=== PATIENT | female | born 1940 | race Caucasian/White ===

== ENCOUNTER 2018-10-25 19:59 | Inpatient (IN) ==
[2018-10-25] MEDS ORDERED: ACETAMINOPHEN 650 MG SUPP.RECT PR ONE (20:21)
[2018-10-25] MEDS ORDERED: 0.9 % SODIUM CHLORIDE 1,000 ML IV ONE ×2 (20:21→21:02)
--- NOTE | 2018-10-25 21:21 | Emergency Department Note ---
Altered Mental Status HPI - General Chief Complaint: Altered Mental Status Stated Complaint: confusion Time Seen by Provider: 10/25/18 20:39 Source: EMS Mode of arrival: EMS Limitations: altered mental status - History of Present Illness HPI Narrative: 78-year-old female in ED with altered mental status and increased weakness. Patient is a volunteer at [employer]. EMS was called by neighbors. Neighbors advised patient was over for dinner one night ago and told them that she had a fall where she hit her head. Today they Advise she has been confused with altered mental status. Patient normally lives home alone. Patient is disoriented upon arrival and unable to give us a history. Patient's medications are Zoloft, escitalopram, magnesium oxide, and amoxicillin prior to dental work. MD complaint: altered mental status, confusion, weakness Onset (ago): day(s) (2) Severity: moderate Context: recent fever Associated symptoms: Reports: cough, fever, loss of appetite, malaise - Related Data Home Medications Medication Instructions Recorded Confirmed Acetaminophen [Tylenol Extra 500 mg PRN 10/26/18 Strength] Amoxicillin 500 mg PO PRN PRN 10/26/18 10/27/18 Escitalopram Oxalate [Lexapro] 5 mg PO 10/26/18 Magnesium Oxide 400 10/26/18 Sertraline [Zoloft] 25 mg PO BID 10/26/18 10/27/18 Previous Rx's Medication Instructions Recorded Oseltamivir Phosphate [Tamiflu] 75 mg PO BID #6 cap 10/26/18 Allergies Allergy/AdvReac Type Severity Reaction Status Date / Time No Known Drug Allergies Allergy Verified 07/06/18 15:03 Review of Systems All systems ED: reviewed and negative except as stated. Past Medical History - Past Medical History PMF Narrative: All Active Problems (Last Reviewed 07/06/18 @ 15:46 by Louie Terrell PA-C) Contusion of right great toe without damage to nail, initial encounter (Acute) Pain of right great toe (Acute) URI (upper respiratory infection) (Acute) Perceived hearing changes (Acute) Impacted cerumen of right ear (Acute) OCD (obsessive compulsive disorder) (Chronic) Depression (Chronic) Tachycardia (Chronic) Precordial pain (Chronic) Rib contusion (Acute) Right leg pain (Acute) Lymphedema (Acute) Hx of knee surgery (Acute) Venous stasis dermatitis of right lower extremity (Acute) Anxiety (Acute) Laryngitis (Acute) Tinnitus (Acute) Bounding pulse (Acute) Anxiety (Acute) Noninfected skin tear of right lower extremity (Acute) Palpitations (Chronic) Dizziness (Chronic) Past Surgical History (Last Reviewed 07/06/18 @ 15:46 by Louie Terrell PA-C) Hx of knee surgery (Acute) History of tonsillectomy and adenoidectomy (Chronic) History of total right hip replacement (Chronic) Medical history: Reports: seizures. 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 Absent: conjunctival injection ENT: mucous membranes dry, TM's normal bilaterally, normal external ear exam Neck: Present: normal inspection. Absent: tenderness, meningismus, lymphadenopathy Chest: Present: normal inspection, symmetric chest wall rise. Absent: tenderness Respiratory: Present: normal lung sounds bilaterally. Absent: respiratory distress, rales/crackles, wheezes Cardiovascular: Present: tachycardia Abdominal: Present: soft, normal bowel sounds. Absent: distention, tenderness, guarding, rebound, rigidity Hip/Pelvis: Present: tenderness (left), deformity (internally rotated, does not lift at the knee like she does with the right one), internal rotation (left) Ankle: Present: tenderness (left), swelling (left), ecchymosis (left), erythema (left) Foot/toe: Present: ecchymosis (third phalanx right foot) Gait: not tested/not observed Back: Present: normal inspection. Absent: tenderness Neurological: Absent: oriented X3 Psychiatric: Present: agitated, anxious Skin: Present: warm, dry, intact, normal color. Absent: cool, diaphoretic Course Vital Signs Temperature 102.6 F H 10/25/18 20:00 Pulse Rate 103 H 10/25/18 20:00 Respiratory Rate 12 10/25/18 20:00 Blood Pressure 139/75 10/25/18 20:00 Pulse Oximetry (%) 98 10/25/18 20:00 Temperature 98.0 F 10/28/18 19:47 Pulse Rate 99 H 10/28/18 19:47 Respiratory Rate 24 H 10/28/18 19:47 Blood Pressure 129/77 10/28/18 19:47 Pulse Oximetry (%) 93 10/28/18 19:47 Altered Mental Status - MDM Narrative Medical decision making narrative: Patient tested influenza A positive. The patient was in radiology attempting to get a CT she became agitated, aggressive and still confused. She was provided 1mg of Ativan. Provided patient report to continue care as the end of this providers shift. - Lab Data Result diagrams: 10/28/18 09:27 10/28/18 09:27 Lab Results 10/25/18 10/25/18 10/25/18 Range/Units 20:50 21:15 21:15 WBC 4.2 L (4.5-11.0) K/mcL RBC 3.67 L (4.00-5.20) M/mcL Hgb 11.4 L (12.0-15.0) g/dL Hct 34.2 L (36.0-48.0) % POC Hct 38.0 (36.0-48.0) % MCV 93.2 (80.0-100.0) fL MCH 30.9 (26.0-34.0) pg MCHC 33.2 (31.0-36.0) g/dL RDW 13.1 (11.5-14.5) % Plt Count 180 (140-440) K/mcL MPV 7.2 L (7.4-10.4) fL Total Counted 100 Seg Neutrophils % 81 H (38-78) % Band Neutrophils % 6 (0-10) % Lymphocytes % 8 L (15-49) % Monocytes % (Manual) 5 (1-12) % Platelet Estimate Normal (NORMAL) RBC Morphology Normal (NORMAL) VBG Lactic Acid (0.5-2.0) mmol/L POC Sodium 139 (133-145) mmol/L Sodium (133-145) mmol/L POC Potassium 3.9 (3.3-5.1) mmol/L Potassium (3.3-5.1) mmol/L POC Chloride 102 (96-108) mmol/L Chloride (96-108) mmol/L Carbon Dioxide (22-30) mmol/L POC Total CO2 24 (22-30) mmol/L Anion Gap (8-16) POC BUN 14 (8-23) mg/dl BUN (8-23) mg/dl Creatinine (0.6-1.1) mg/dl POC Creatinine 0.9 (0.6-1.1) mg/dl GFR Calculation Glucose (70-105) mg/dL POC Glucose 88 (70-105) mg/dL Calcium (8.6-10.4) mg/dl POC WB Ioniz Calcium 1.06 L (1.16-1.32) mmol/L Total Bilirubin (0.0-1.0) mg/dL AST (0-37) U/l ALT (0-40) U/l Alkaline Phosphatase (39-117) U/L Total Protein (5.9-8.4) gm/dL Albumin (3.2-5.2) gm/dL Globulin (2.2-3.7) gm/dL Albumin/Globulin Ratio (1.0-2.3) Procalcitonin (<0.10) ng/mL Urine Color Yellow Urine Appearance Clear Urine pH 6.0 (5.0-9.0) Ur Specific Agency 1.021 (1.000-1.035) Urine Protein Neg (NEG) mg/dL Urine Glucose (UA) Negative (NEG) mg/dL Urine Ketones 20 A (NEG) mg/dL Urine Occult Blood 0.03 A (<0.03) mg/dL Urine Nitrate Neg (NEG) Urine Bilirubin Neg (NEG) mg/dL Urine Urobilinogen Neg (NEG) mg/dL Ur Leukocyte Esterase Neg (NEG) /uL Urine RBC 15 H (0-1) /hpf Urine WBC 1 (0-4) /hpf Ur Squamous Epith Cells 0 (0-4) /hpf Urine Bacteria 0 (0) /hpf Urine Mucus Few (0) /hpf Ur Culture Indicated? No 10/25/18 10/25/18 10/25/18 Range/Units 21:15 21:15 21:15 WBC (4.5-11.0) K/mcL RBC (4.00-5.20) M/mcL Hgb (12.0-15.0) g/dL Hct (36.0-48.0) % POC Hct (36.0-48.0) % MCV (80.0-100.0) fL MCH (26.0-34.0) pg MCHC (31.0-36.0) g/dL RDW (11.5-14.5) % Plt Count (140-440) K/mcL MPV (7.4-10.4) fL Total Counted Seg Neutrophils % (38-78) % Band Neutrophils % (0-10) % Lymphocytes % (15-49) % Monocytes % (Manual) (1-12) % Platelet Estimate (NORMAL) RBC Morphology (NORMAL) VBG Lactic Acid 1.9 (0.5-2.0) mmol/L POC Sodium (133-145) mmol/L Sodium 136 (133-145) mmol/L POC Potassium (3.3-5.1) mmol/L Potassium 4.1 (3.3-5.1) mmol/L POC Chloride (96-108) mmol/L Chloride 101 (96-108) mmol/L Carbon Dioxide 23 (22-30) mmol/L POC Total CO2 (22-30) mmol/L Anion Gap 12.0 (8-16) POC BUN (8-23) mg/dl BUN 14 (8-23) mg/dl Creatinine 0.9 (0.6-1.1) mg/dl POC Creatinine (0.6-1.1) mg/dl GFR Calculation 60 Glucose 90 (70-105) mg/dL POC Glucose (70-105) mg/dL Calcium 8.5 L (8.6-10.4) mg/dl POC WB Ioniz Calcium (1.16-1.32) mmol/L Total Bilirubin 0.3 (0.0-1.0) mg/dL AST 43 H (0-37) U/l ALT 22 (0-40) U/l Alkaline Phosphatase 47 (39-117) U/L Total Protein 7.0 (5.9-8.4) gm/dL Albumin 3.7 (3.2-5.2) gm/dL Globulin 3.3 (2.2-3.7) gm/dL Albumin/Globulin Ratio 1.1 (1.0-2.3) Procalcitonin < 0.05 (<0.10) ng/mL Urine Color Urine Appearance Urine pH (5.0-9.0) Ur Specific Agency (1.000-1.035) Urine Protein (NEG) mg/dL Urine Glucose (UA) (NEG) mg/dL Urine Ketones (NEG) mg/dL Urine Occult Blood (<0.03) mg/dL Urine Nitrate (NEG) Urine Bilirubin (NEG) mg/dL Urine Urobilinogen (NEG) mg/dL Ur Leukocyte Esterase (NEG) /uL Urine RBC (0-1) /hpf Urine WBC (0-4) /hpf Ur Squamous Epith Cells (0-4) /hpf Urine Bacteria (0) /hpf Urine Mucus (0) /hpf Ur Culture Indicated? Disposition Pt seen by PLUMBING DRAFTER/PA only: No (Health Insurance Sales Agent) Clinical Impression: Influenza A Disposition: Xfer As Inpt ([facility]) Condition: Fair Time of Disposition: 21:53
[2018-10-25] MEDS ORDERED: LORazepam 2 MG/ML VIAL IV ONE (21:28)
[2018-10-25] MEDS ORDERED: HYDROmorphone 2 MG/ML VIAL IV PRN (21:42)
[2018-10-25 21:54] LABS: Mean Cell Volume 93.2 fL (80.0-100.0); Mean Corpuscular HGB Conc 33.2 g/dL (31.0-36.0); Platelet Count 180 K/mcL (140-440); RBC 3.67 M/mcL (4.00-5.20); Red Cell Distribution Width 13.1 % (11.5-14.5)
[2018-10-25 22:03] LABS: ALT/SGPT 22 U/l (0-40); Albumin 3.7 gm/dL (3.2-5.2); Albumin/Globulin Ratio 1.1 (1.0-2.3); Alkaline Phosphatase 47 U/L (39-117); Blood Urea Nitrogen 14 mg/dl (8-23)
[2018-10-25 22:06] LABS: Appearance,Urine CLEAR; Bacteria,Urine 0 /hpf (0); Bilirubin,Urine NEG (NEG); Color,Urine YELLOW; Glucose,Urine (UA) NEGATIVE (NEG); Leukocyte Esterase,Urine NEG /uL (NEG); Mucus,Urine FEW /hpf (0); Protein,Urine NEG (NEG); Specific Gravity,Urine 1.021 (1.000-1.035); Urine Blood 0.03 mg/dL (<0.03); Urine RBC 15 /hpf (0-1); Urine Squamous Epithelial Cell 0 /hpf (0-4); Urine WBC 1 /hpf (0-4); Urobilinogen,Urine NEG (NEG)
[2018-10-25] MEDS ORDERED: LACTATED RINGERS 1,000 ML IV ONE (22:31)
[2018-10-25 23:02] LABS: Band Neutrophils % 6 % (0-10); Lymphocytes % 8 % (15-49); Monocytes % (Manual) 5 % (1-12); Platelet Estimate NORMAL (NORMAL); RBC Morphology NORMAL (NORMAL); Segmented Neutrophils % 81 % (38-78)
--- NOTE | 2018-10-25 23:02 | Emergency Department Note ---
Altered Mental Status HPI - General Chief Complaint: Altered Mental Status Stated Complaint: confusion Time Seen by Provider: 10/25/18 20:39 Source: EMS Mode of arrival: EMS Limitations: altered mental status - History of Present Illness Severity: moderate Associated symptoms: Reports: cough, fever, loss of appetite, malaise - Related Data Home Medications Medication Instructions Recorded Confirmed No Known Home Meds 04/02/18 10/25/18 Allergies Allergy/AdvReac Type Severity Reaction Status Date / Time No Known Drug Allergies Allergy Verified 07/06/18 15:03 Past Medical History - Past Medical History Medical history: Reports: seizures. 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 Smalls. - Lab Data Lab results reviewed: Yes I reviewed the patient's lab results. Result diagrams: 10/25/18 21:15 10/25/18 21:15 Lab Results 10/25/18 10/25/18 10/25/18 Range/Units 20:50 21:15 21:15 WBC 4.2 L (4.5-11.0) K/mcL RBC 3.67 L (4.00-5.20) M/mcL Hgb 11.4 L (12.0-15.0) g/dL Hct 34.2 L (36.0-48.0) % POC Hct 38.0 (36.0-48.0) % MCV 93.2 (80.0-100.0) fL MCH 30.9 (26.0-34.0) pg MCHC 33.2 (31.0-36.0) g/dL RDW 13.1 (11.5-14.5) % Plt Count 180 (140-440) K/mcL MPV 7.2 L (7.4-10.4) fL Band Neutrophils % Not Reportable VBG Lactic Acid (0.5-2.0) mmol/L POC Sodium 139 (133-145) mmol/L Sodium (133-145) mmol/L POC Potassium 3.9 (3.3-5.1) mmol/L Potassium (3.3-5.1) mmol/L POC Chloride 102 (96-108) mmol/L Chloride (96-108) mmol/L Carbon Dioxide (22-30) mmol/L POC Total CO2 24 (22-30) mmol/L Anion Gap (8-16) POC BUN 14 (8-23) mg/dl BUN (8-23) mg/dl Creatinine (0.6-1.1) mg/dl POC Creatinine 0.9 (0.6-1.1) mg/dl GFR Calculation Glucose (70-105) mg/dL POC Glucose 88 (70-105) mg/dL Calcium (8.6-10.4) mg/dl POC WB Ioniz Calcium 1.06 L (1.16-1.32) mmol/L Total Bilirubin (0.0-1.0) mg/dL AST (0-37) U/l ALT (0-40) U/l Alkaline Phosphatase (39-117) U/L Total Protein (5.9-8.4) gm/dL Albumin (3.2-5.2) gm/dL Globulin (2.2-3.7) gm/dL Albumin/Globulin Ratio (1.0-2.3) Urine Color Yellow Urine Appearance Clear Urine pH 6.0 (5.0-9.0) Ur Specific [place] 1.021 (1.000-1.035) Urine Protein Neg (NEG) mg/dL Urine Glucose (UA) Negative (NEG) mg/dL Urine Ketones 20 A (NEG) mg/dL Urine Occult Blood 0.03 A (<0.03) mg/dL Urine Nitrate Neg (NEG) Urine Bilirubin Neg (NEG) mg/dL Urine Urobilinogen Neg (NEG) mg/dL Ur Leukocyte Esterase Neg (NEG) /uL Urine RBC 15 H (0-1) /hpf Urine WBC 1 (0-4) /hpf Ur Squamous Epith Cells 0 (0-4) /hpf Urine Bacteria 0 (0) /hpf Urine Mucus Few (0) /hpf Ur Culture Indicated? No 10/25/18 10/25/18 Range/Units 21:15 21:15 WBC (4.5-11.0) K/mcL RBC (4.00-5.20) M/mcL Hgb (12.0-15.0) g/dL Hct (36.0-48.0) % POC Hct (36.0-48.0) % MCV (80.0-100.0) fL MCH (26.0-34.0) pg MCHC (31.0-36.0) g/dL RDW (11.5-14.5) % Plt Count (140-440) K/mcL MPV (7.4-10.4) fL Band Neutrophils % VBG Lactic Acid 1.9 (0.5-2.0) mmol/L POC Sodium (133-145) mmol/L Sodium 136 (133-145) mmol/L POC Potassium (3.3-5.1) mmol/L Potassium 4.1 (3.3-5.1) mmol/L POC Chloride (96-108) mmol/L Chloride 101 (96-108) mmol/L Carbon Dioxide 23 (22-30) mmol/L POC Total CO2 (22-30) mmol/L Anion Gap 12.0 (8-16) POC BUN (8-23) mg/dl BUN 14 (8-23) mg/dl Creatinine 0.9 (0.6-1.1) mg/dl POC Creatinine (0.6-1.1) mg/dl GFR Calculation 60 Glucose 90 (70-105) mg/dL POC Glucose (70-105) mg/dL Calcium 8.5 L (8.6-10.4) mg/dl POC WB Ioniz Calcium (1.16-1.32) mmol/L Total Bilirubin 0.3 (0.0-1.0) mg/dL AST 43 H (0-37) U/l ALT 22 (0-40) U/l Alkaline Phosphatase 47 (39-117) U/L Total Protein 7.0 (5.9-8.4) gm/dL Albumin 3.7 (3.2-5.2) gm/dL Globulin 3.3 (2.2-3.7) gm/dL Albumin/Globulin Ratio 1.1 (1.0-2.3) Urine Color Urine Appearance Urine pH (5.0-9.0) Ur Specific [place] (1.000-1.035) Urine Protein (NEG) mg/dL Urine Glucose (UA) (NEG) mg/dL Urine Ketones (NEG) mg/dL Urine Occult Blood (<0.03) mg/dL Urine Nitrate (NEG) Urine Bilirubin (NEG) mg/dL Urine Urobilinogen (NEG) mg/dL Ur Leukocyte Esterase (NEG) /uL Urine RBC (0-1) /hpf Urine WBC (0-4) /hpf Ur Squamous Epith Cells (0-4) /hpf Urine Bacteria (0) /hpf Urine Mucus (0) /hpf Ur Culture Indicated? - Radiology Data Radiology results reviewed: Yes I reviewed the patient's radiology results. Disposition Pt seen by EXECUTIVE CONSULTANT/PA only: No Clinical Impression: Influenza A Disposition: Xfer As Inpt ([facility]) Condition: Fair Referrals: Trevon Mcduffie MD [Primary Care Provider] - Time of Disposition: 23:02
--- NOTE | 2018-10-25 23:23 | Internal Med History&Physical ---
Medical - H&P: HPI Patient information: Note initiated : 10/25/18 at 11:21 pm Service Date, if different from initiated Date: [] Patient: Monik Byrd a 78 y/o F admitted on for confusion. Chief Complaint: [] History of present illness: Ms. Byrd is a 78 year old F With weakness and confusion for the past 24 hours as well as cough. EMS was called by neighbors as the neighbors had her over for dinner the previous night where she had fallen. Today they noticed that she was confused, she lives alone. She was disoriented when she arrived in the ED. She has a history of depression. She had a chest x-ray, knee x-ray, CT brain; all unremarkable per discussion with ED physician. She was found to be febrile and found to be positive for influenza A. In discussing with her why she is here she is not sure why. She could not give me much of a history. She is coughing throughout my interview, and I asked if that is new and she says it depends. Review of systems: Unable to obtain given her confusion Medical - H&P: [facility] Medical history: Medical History (Last Reviewed 07/06/18 @ 15:46 by Louie Terrell PA-C) OCD (obsessive compulsive disorder) (Chronic) Depression (Chronic) Tachycardia (Chronic) Precordial pain (Chronic) Rib contusion (Acute) Right leg pain (Acute) Lymphedema (Acute) Venous stasis dermatitis of right lower extremity (Acute) Anxiety (Acute) Laryngitis (Acute) Tinnitus (Acute) Bounding pulse (Acute) Anxiety (Acute) Noninfected skin tear of right lower extremity (Acute) Palpitations (Chronic) Dizziness (Chronic) Depression Past Surgical History (Last Reviewed 07/06/18 @ 15:46 by Louie Terrell PA-C) Hx of knee surgery (Acute) History of tonsillectomy and adenoidectomy (Chronic) History of total right hip replacement (Chronic) Family history: She could not give me her parents medical history Social History (Last Updated 07/06/18 @ 15:48 by Louie Terrell PA-C) -She lives alone -She does not smoke -Drinks alcohol rarely Is a volunteer at [employer] - H&P: Meds Home Medications Medication Instructions Recorded Confirmed Type No Known Home Meds 04/02/18 10/25/18 History Allergies Allergy/AdvReac Type Severity Reaction Status Date / Time No Known Drug Allergies Allergy Verified 07/06/18 15:03 Medical - H&P: Exam - Constitutional Vitals: Temp Pulse Resp BP Pulse Ox 101.4 F H 99 H 17 131/74 98 10/25/18 23:16 10/25/18 23:16 10/25/18 23:16 10/25/18 23:16 10/25/18 23:16 Exam: General: Alert, Awake, No acute Distress Eyes/N/T: EOMI, PEERL, DMM, sclera injected bilaterally Head/Neck: neck supple with full ROM no rigidity, normocephalic atraumatic CV: Mildly tacky but regular, No murmurs, Pulm: Clear b/l, no wheezing/rhonchi/rales Abd: soft, nontender, +BS x4 Ext: no clubbing/cyanosis/edema Neuro: Alert and oriented to person and to hospital but could not tell me which hospital and could not tell me the president to the [facility] or the year, moves all extremities, follows commands, CN 2-12 grossly intact, symmetrical strength b/l upper/lower, sensations intact b/l upper/lower. No nuchal rigidity. Skin: warm/dry Medical - H&P: Reslt - Labs CBC & Chem 7: 10/25/18 21:15 10/25/18 21:15 Labs: Short CBC 10/25/18 Range/Units 21:15 WBC 4.2 L (4.5-11.0) K/mcL Hgb 11.4 L (12.0-15.0) g/dL Hct 34.2 L (36.0-48.0) % Plt Count 180 (140-440) K/mcL BMP 10/25/18 21:15 Sodium 136 Potassium 4.1 Chloride 101 Carbon Dioxide 23 BUN 14 Creatinine 0.9 Glucose 90 Calcium 8.5 L Liver Function 10/25/18 Range/Units 21:15 Total Bilirubin 0.3 (0.0-1.0) mg/dL AST 43 H (0-37) U/l ALT 22 (0-40) U/l Alkaline Phosphatase 47 (39-117) U/L Albumin 3.7 (3.2-5.2) gm/dL Urine 03/24/19 Range/Units 20:50 Urine Color Yellow Urine Appearance Clear Urine pH 6.0 (5.0-9.0) Ur Specific [place] 1.021 (1.000-1.035) Urine Protein Neg (NEG) mg/dL Urine Glucose (UA) Negative (NEG) mg/dL - Impressions Chest x-ray possible haziness right middle lobe CT brain unremarkable per report Medical - H&P: A/P - Narrative A/P Narrative: A: *Influenza A with Fever/Cough/Confusion: *Encephalopathy: Secondary to above *Depression/anxiety: *Generalized weakness/deconditioning: * P: -Tamiflu -IVF's -PRN Zyprexa -Follow-up procalcitonin and cultures -Check ABG - -clarify home meds -pt/ot -ppx: Lovenox
[2018-10-25] MEDS ORDERED: OSELTAMIVIR PHOSPHATE 75 MG CAPSULE PO ONE (23:49)
[2018-10-25] MEDS ORDERED: hydrOXYzine 25 MG TABLET PO ONE (23:52)
[2018-10-26] MEDS ORDERED: POLYETHYLENE GLYCOL 3350 17 GM PACKET PO PRN (00:36)
[2018-10-26] MEDS ORDERED: PROCHLORPERAZINE 10 MG/2 ML VIAL IV PRN (00:36)
[2018-10-26] MEDS ORDERED: hydrOXYzine 25 MG TABLET PO ONE (00:36)
[2018-10-26] MEDS ORDERED: OSELTAMIVIR PHOSPHATE 75 MG CAPSULE PO ONE (00:36)
[2018-10-26] MEDS ORDERED: OLANZapine 5 MG TABLET PO PRN (00:36)
[2018-10-26] MEDS ORDERED: POTASSIUM CHLORIDE 40 MEQ in DEXTROSE 5% IN WATER 500 ML IV PRN (00:36)
[2018-10-26] MEDS ORDERED: MAGNESIUM SULFATE 2 GM/50 ML BAG IV PRN (00:36)
[2018-10-26] MEDS ORDERED: SENNOSIDES 1 TABLET PO PRN (00:36)
[2018-10-26] MEDS ORDERED: POTASSIUM CHLORIDE 20 MEQ TABLET PO PRN ×2 (00:36)
[2018-10-26] MEDS ORDERED: LACTULOSE 20 GM/30 ML ORAL.SOL PO PRN (00:36)
[2018-10-26] MEDS ORDERED: ONDANSETRON 4 MG/2 ML VIAL IV PRN (00:36)
[2018-10-26] MEDS ORDERED: IPRATROPIUM/ALBUTEROL 3 ML AMPUL.NEB NEB PRN (00:36)
[2018-10-26] MEDS: HYDROcodone/APAP 5/325MG TABLET PO PRN (01:15)
[2018-10-26] MEDS ORDERED: HYDROcodone/APAP 5/325MG TABLET PO ONE (01:15)
[2018-10-26] MEDS: 0.9 % SODIUM CHLORIDE 10 ML SYRINGE IV SCH ×3 (05:32→23:50)
--- NOTE | 2018-10-26 06:02 | XRay Report ---
CLINICAL INFORMATION: Confusion. Fall. Apparent hip pain TECHNIQUE: AP pelvis, lateral left hip COMPARISON: None. FINDINGS: Suboptimal evaluation. The patient was unable to cooperate and hold still. Previous right total hip arthroplasty There is degenerative joint disease in the left hip. No detectable acute fracture. No pelvic or sacral fracture identified. As clinically indicated follow-up examination or CT scan may be of benefit IMPRESSION: 1. Suboptimal evaluation as above 2. Degenerative joint disease and left hip. No detectable acute fracture Interpreted and Authenticated by: Jozef Hermosillo 10/26/18
--- NOTE | 2018-10-26 06:06 | Cat Scan Report ---
CLINICAL INFORMATION: Confusion COMPARISON: Previous examination dated 05/21/2017 TECHNIQUE: Axial noncontrast-enhanced images through the brain. Axial noncontrast enhanced examination FINDINGS: Patient was unable to hold still during examination. No acute intracranial hemorrhage. There is no subdural hematoma. No subarachnoid hemorrhage. No acute intra-axial hemorrhage. There is white matter abnormality consistent with small vessel ischemic change in this 78-year-old patient. There is more focal low density in the occipital lobes, right worse on left. These findings appear chronic. No new attenuation abnormalities or localized mass effect. No midline shift. Brainstem and cerebellum are negative. Basilar cisterns are normal. No hyperdense middle cerebral artery sign. No calvarial fracture. No lytic lesion. There is inflammatory disease within the ethmoid sinuses bilaterally. Temporal bones are negative. No destructive lesion or fracture Examination was initially interpreted by [facility] IMPRESSION: 1. White matter abnormality as above 2. No acute abnormality. No significant interval change since 05/21/2017 The exam was performed using radiation dose optimization techniques including, but not limited to, automated exposure control, adjustment of the mA and/or kV according to patient size and use of iterative reconstruction technique. Interpreted and Authenticated by: Jozef Hermosillo 10/26/18
--- NOTE | 2018-10-26 06:07 | XRay Report ---
CLINICAL INFORMATION: Left ankle injury. Left ankle swelling TECHNIQUE: AP, oblique, lateral left ankle COMPARISON: None. FINDINGS: No left ankle fracture. Distal tibia and fibula are negative. Comparison calcaneus are normal. No osteochondral lesion of the talus. Tibiotalar joint and subtalar joint are negative. No plain film evidence for significant tibiotalar joint effusion IMPRESSION: Negative left ankle. No acute abnormality Interpreted and Authenticated by: Jozef Hermosillo 10/26/18
--- NOTE | 2018-10-26 06:08 | XRay Report ---
INDICATION: Influenza TECHNIQUE: AP chest x-ray,portable semiupright COMPARISON: Previous chest x-rays dated 04/17/2018, 01/15/2018 FINDINGS:Lungs are negative. No parenchymal infiltrate or mass. No focal pulmonary parenchymal abnormality. Heart size and vascularity are normal. Adriana and mediastinum are negative. No pleural fluid. No acute abnormality or interval change IMPRESSION: No acute abnormality. Negative AP chest x-ray Interpreted and Authenticated by: Jozef Hermosillo 10/26/18
[2018-10-26 06:18] LABS: Basophils # (Auto) 0 K/mcL (0.0-0.3); Basophils % (Auto) 0.2 % (0.0-2.0); Eosinophils # (Auto) 0 K/mcL (0.0-0.7); Eosinophils % (Auto) 0.1 % (0.0-7.0); Granulocytes % (Auto) 72.7 % (38.0-78.0); Lymphocytes # (Auto) 0.5 K/mcL (1.5-4.8); Lymphocytes % (Auto) 13.8 % (15.5-49.0); Mean Cell Volume 95.6 fL (80.0-100.0); Mean Corpuscular HGB Conc 33.1 g/dL (31.0-36.0); Monocytes # (Auto) 0.5 K/mcL (0.1-0.9); Monocytes % (Auto) 13.2 % (1.0-12.0); Platelet Count 135 K/mcL (140-440); RBC 3.48 M/mcL (4.00-5.20); Red Cell Distribution Width 14.3 % (11.5-14.5)
[2018-10-26 06:28] LABS: ALT/SGPT 20 U/l (0-40); Albumin 3.2 gm/dL (3.2-5.2); Albumin/Globulin Ratio 1.1 (1.0-2.3); Alkaline Phosphatase 40 U/L (39-117); Bilirubin,Direct < 0.2 mg/dL (0.0-0.3); Blood Urea Nitrogen 10 mg/dl (8-23); Gamma Glutamyl Transpeptidase 17 U/L (5-36); Uric Acid 2.6 mg/dL (2.5-8.0)
--- NOTE | 2018-10-26 07:25 | Internal Med Progress Note ---
Medical - PN: Subj Patient information: Note initiated : 10/26/18 at 7:18 am Service Date, if different from initiated Date: [] Patient: Monik Byrd a 78 y/o F admitted on 10/26/18 for confusion. Chief Complaint: [] Interval history: Ms. Byrd is a 78 year old F With weakness and confusion for the past 24 hours as well as cough. EMS was called by neighbors as the neighbors had her over for dinner the previous night where she had fallen. Today they noticed that she was confused, she lives alone. She was disoriented when she arrived in the ED. She has a history of depression. She had a chest x-ray, knee x-ray, CT brain; all unremarkable per discussion with ED physician. She was found to be febrile and found to be positive for influenza A. In discussing with her why she is here she is not sure why. She could not give me much of a history. She is coughing throughout my interview, and I asked if that is new and she says it depends. Review of systems: Unable to obtain given her confusion 10/26 She reports poor sleep last night. Reports some crampy abdominal pain lower quadrants. No she is in the hospital. Appears agitated at times. Answers questions appropriately although slowly. - Constitutional Vitals: Vital Signs Temp Pulse Resp BP Pulse Ox 100.0 F H 98 H 19 106/62 100 10/26/18 04:01 10/26/18 00:48 10/26/18 04:01 10/26/18 04:01 10/26/18 04:01 Period Temp Pulse Resp BP Sys/Khanna Pulse Ox Last 24 Hr 100.0 F-103.5 F 95-113 12- 106-152/50-103 92-100 Intake and Output 10/25/18 10/26/18 10/26/18 21:59 05:59 13:59 Intake Total 2150 Output Total 1350 Balance 800 Weight 76.204 kg 74.707 kg Intake & Output: Intake & Output 10/25/18 10/26/18 10/26/18 21:59 05:59 13:59 Intake Total 2150 Output Total 1350 Balance 800 Weight 76.204 kg 74.707 kg Intake: IV 2000 Sodium Chloride 0.9% 1,000 ml @ 2000 Wide Open IV BOLUS ONE Rx#: [id number] Oral 150 Output: Urine Catheter Amount 1350 Other: Urine Appearance Clear Uretheral (Esquivel) Cloudy Clear Urine Color Bright Yellow Uretheral (Esquivel) Dark Yellow Dark Yellow Exam: General: Alert, Awake, Eyes/N/T: EOMI, Head/Neck: neck supple with full ROM no rigidity, CV: Mildly tacky but regular, No murmurs, Pulm: Clear b/l, no wheezing/rhonchi/rales Abd: soft, nontender, +BS x4 Ext: no clubbing/cyanosis/edema Neuro: Alert and oriented to person and to hospital but could not tell me which hospital and could not tell me the president to the [place] or the year, moves all extremities, follows commands, CN 2-12 grossly intact, symmetrical strength b/l upper/lower, sensations intact b/l upper/lower. No nuchal rigidity. Skin: warm/dry Medical - PN: Obj Da - Labs CBC & Chem 7: 10/26/18 04:00 10/26/18 04:00 Labs: Abnormal Lab Results 10/26/18 10/26/18 10/25/18 04:00 04:00 21:15 WBC 3.4 L RBC 3.48 L Hgb 11.0 L Hct 33.3 L Plt Count 135 L MPV Lymph % (Auto) 13.8 L [place] % (Auto) 13.2 H Lymph # (Auto) 0.5 L Seg Neutrophils % Lymphocytes % Carbon Dioxide 19 L Calcium 7.9 L 8.5 L POC WB Ioniz Calcium AST 45 H 43 H Lactate Dehydrogenase 316 H Urine Ketones Urine Occult Blood Urine RBC 10/25/18 10/25/18 10/25/18 21:15 21:15 20:50 WBC 4.2 L RBC 3.67 L Hgb 11.4 L Hct 34.2 L Plt Count MPV 7.2 L Lymph % (Auto) [place] % (Auto) Lymph # (Auto) Seg Neutrophils % 81 H Lymphocytes % 8 L Carbon Dioxide Calcium POC WB Ioniz Calcium 1.06 L AST Lactate Dehydrogenase Urine Ketones 20 A Urine Occult Blood 0.03 A Urine RBC 15 H Meds: Medications Acetaminophen (Tylenol) 650 mg PO Q6HP PRN PRN Reason: PAIN/FEVER > 101 Hydrocodone Bitart/Acetaminophen ([place] 5/325mg) 1 tab PO Q4HP PRN PRN Reason: PAIN LEVEL 3-6 Last Admin: 10/26/18 01:15 Dose: 1 tab Documented by: Albuterol/Ipratropium (Duoneb) 3 ml NEB Q4HP PRN PRN Reason: Shortness Of Breath Docusate Sodium (Colace) 100 mg PO BID LINO Enoxaparin Sodium (Lovenox) 40 mg SQ DAILY LINO Potassium Chloride 40 meq/ (Dextrose) 520 mls @ 130 mls/hr IV ONCE PRN PRN Reason: Potassium < 3 Magnesium Sulfate (Magnesium Sulfate) 2 gm in 50 mls @ 50 mls/hr IV ONCE PRN PRN Reason: Magnesium </= 1.6 Lactulose (Cephulac) 10 gm PO DAILYP PRN PRN Reason: Constipation Olanzapine (Zyprexa) 5 mg PO TIDP PRN PRN Reason: Agitation Ondansetron HCl (Zofran) 4 mg IV Q4HP PRN PRN Reason: Nausea And Vomiting Oseltamivir Phosphate (Tamiflu) 75 mg PO BID [facility] Polyethylene Glycol (Miralax) 17 gm PO DAILYP PRN PRN Reason: Constipation Potassium Chloride (Kdur) 40 meq PO ONCE PRN PRN Reason: Potssium is 3-3.5 Potassium Chloride (Kdur) 40 meq PO ONCE PRN PRN Reason: Potassium < 3 Prochlorperazine (Compazine) 10 mg IV Q6HP PRN PRN Reason: Nausea And Vomiting Senna (Senokot) 2 tab PO HSP PRN PRN Reason: Constipation Sodium Chloride (Saline Flush) 10 ml IV Q8 [facility] Last Admin: 10/26/18 05:32 Dose: Not Given Documented by: Medical - PN: A/P - Time Spent With Patient Total time spent is greater than 50% in coordination of care (as documented) at patient's floor/unit and/or counseling patient: - Narrative A/P Narrative: A: *Influenza PNA with Fevers/Cough/Confusion: -fevers, trending down -CT brain no acute, chronic small vessel ischemic changes -CXR unremarkable, not requiring supplemental oxygen *Encephalopathy: Secondary to above -?underlying component of dementia *Depression/anxiety: *Generalized weakness/deconditioning: * P: -Tamiflu -s/p IVF's -PRN Zyprexa -AXR -clarify home meds -pt/ot -ppx: Lovenox Medical - PN: Qual - VTE Deep Vein Thrombosis/Pulmonary Embolism Present on Admission: No
[2018-10-26] MEDS: OSELTAMIVIR PHOSPHATE 75 MG CAPSULE PO SCH ×2 (09:24→21:10)
[2018-10-26] MEDS: DOCUSATE SODIUM 100 MG CAPSULE PO SCH ×2 (09:24→21:11)
[2018-10-26] MEDS: ACETAMINOPHEN 325 MG TABLET PO PRN (09:26)
[2018-10-26] MEDS: ENOXAPARIN 40 MG/0.4 ML SYRINGE SQ SCH (09:26)
--- NOTE | 2018-10-26 10:52 | XRay Report ---
CLINICAL INFORMATION: Abdominal pain. Possible constipation. TECHNIQUE: AP supine abdomen COMPARISON: Previous CT scan dated 11/06/2011 FINDINGS: Bowel gas pattern is unremarkable. No evidence for mechanical small bowel obstruction. No dilated gas filled small bowel. Colon appears unremarkable. Fecal material is within normal limits without evidence for significant constipation or impaction. No focal abnormality. No pathologic calcifications. Incidental note is made of previous right total hip arthroplasty IMPRESSION: 1. Nonspecific and nonobstructive bowel gas pattern 2. No plain film evidence for significant constipation Interpreted and Authenticated by: Jozef Hermosillo 10/26/18
--- NOTE | 2018-10-26 21:45 | Discharge Summary ---
Medical - DS: Prov Patient information: Note initiated : 10/26/18 at 9:43 pm Service Date, if different from initiated Date: [] Patient: Monik Byrd 78 y/o F admitted on 10/26/18 for confusion. Chief Complaint: [] Date of admission: 10/26/18 00:34 Discharge date: 10/29/18 Primary care physician: Trevon Mcduffie Consults: 10/25/18 Consult to Physician [CONS] Stat Comment: Consulting Provider: Bernard Smalls Reason For Exam: Physician to Consult Medical - DS: Meds - Discharge Medications Prescriptions: Oseltamivir Phosphate [Tamiflu] 75 mg PO BID #6 cap Active and Home Medications: Home Medications Acetaminophen [Tylenol Extra Strength] 10/26/18 [History Last Taken Unknown] Amoxicillin 500 mg PO PRN PRN 10/26/18 [History Last Taken Unknown] Escitalopram Oxalate [Lexapro] 5 mg PO 10/26/18 [History Last Taken Unknown] Magnesium Oxide 400 10/26/18 [History Last Taken Unknown] Sertraline [Zoloft] 25 mg PO BID 10/26/18 [History Last Taken Unknown] Medical - DS: Hosp Hospital course: Ms. Byrd is a 78 year old F With weakness and confusion for the past 24 hours as well as cough. EMS was called by neighbors as the neighbors had her over for dinner the previous night where she had fallen. Today they noticed that she was confused, she lives alone. She was disoriented when she arrived in the ED. She has a history of depression. She had a chest x-ray, knee x-ray, CT brain; all unremarkable per discussion with ED physician. She was found to be febrile and found to be positive for influenza A. In discussing with her why she is here she is not sure why. She could not give me much of a history. She is coughing throughout my interview, and I asked if that is new and she says it depends. Review of systems: Unable to obtain given her confusion 10/26 She reports poor sleep last night. Reports some crampy abdominal pain lower quadrants. No she is in the hospital. Appears agitated at times. Answers questions appropriately although slowly. 10/27 Mentation improved significant yesterday afternoon. Then became more confused and agitated overnight. however, clearing up again mid morning. Sounds like there might be some baseline memory issues after discussion with staff and case management. No coughing this morning. She is ambulating better. No new complaints. 10/28 Some agitation confusion overnight again. Always worse at night typically clears during the day. No other overnight events. Patient denies any complaints. 10/29 confusion always worse at night. She is up with physical therapy this morning. Seems to be in good spirits and has her normal clothes on. Stable for discharge Discharge diagnosis: Influenza with confusion likely underlying dementia based on history Secondary discharge diagnosis: Depression/anxiety - Time Spent with Patient Total time spent providing and/or coordinating discharge services: Greater than 30 minutes Medical - DS: Exam - Constitutional Vitals: Vital Signs Temp Pulse Pulse Resp BP BP Pulse Ox 10/26/18 19:32 96 F L 98 H 18 131/74 96 10/26/18 14:48 98.2 F 18 116/76 95 10/26/18 12:00 98.6 F 20 110/72 96 10/26/18 08:01 100.8 F H 18 136/68 93 10/26/18 06:00 93 10/26/18 04:01 100.0 F H 19 106/62 100 10/26/18 02:01 100.8 F H 22 106/50 97 10/26/18 01:01 100.9 F H 20 127/69 96 10/26/18 00:48 98 H 19 131/92 96 10/26/18 00:36 101.1 F H 24 H 131/92 92 10/26/18 00:34 101.1 F H 20 131/92 92 10/26/18 00:16 101.0 F H 100 H 15 124/64 96 10/26/18 00:03 100.9 F H 113 H 17 140/70 96 10/25/18 23:46 101.0 F H 98 H 21 116/61 94 10/25/18 23:31 101.3 F H 99 H 19 126/67 98 10/25/18 23:21 101.3 F H 99 H 21 99 10/25/18 23:16 101.4 F H 99 H 17 131/74 98 10/25/18 22:53 101.5 F H 100 H 21 99 10/25/18 22:46 101.6 F H 96 H 23 H 133/60 98 10/25/18 22:37 101.5 F H 104 H 24 H 100 10/25/18 22:31 100.9 F H 95 H 19 133/67 96 10/25/18 22:25 101.1 F H 102 H 23 H 131/74 94 10/25/18 21:48 102.6 F H 104 H 18 97 Intake and Output 10/26/18 10/26/18 10/26/18 05:59 13:59 21:59 Intake Total 2150 1000 240 Output Total 1350 1200 Balance 800 1000 -960 Intake: IV 2000 1000 Sodium Chloride 0.9% 1,000 ml @ 2000 Wide Open IV BOLUS ONE Rx#: [id number] Oral 150 240 Output: Urine Catheter Amount 1350 1200 Other: Urine Appearance Clear Clear Uretheral (Esquivel) Clear Clear Urine Color Bright Yellow Pale Uretheral (Esquivel) Dark Yellow Light Kellie Weight 74.707 kg Medical - DS: Data Labs on day of discharge: Labs from last 24 hours 10/26/18 10/26/18 10/26/18 04:00 04:00 04:00 WBC 3.4 L RBC 3.48 L Hgb 11.0 L Hct 33.3 L MCV 95.6 MCH 31.7 MCHC 33.1 RDW 14.3 Plt Count 135 L MPV 7.7 Gran % 72.7 Lymph % (Auto) 13.8 L [place] % (Auto) 13.2 H Eos % (Auto) 0.1 Baso % (Auto) 0.2 Gran # 2.5 Lymph # (Auto) 0.5 L [place] # (Auto) 0.5 Eos # (Auto) 0 Baso # (Auto) 0 Total Counted Seg Neutrophils % Band Neutrophils % Lymphocytes % Monocytes % (Manual) Platelet Estimate RBC Morphology VBG Lactic Acid Sodium 137 Potassium 3.7 Chloride 104 Carbon Dioxide 19 L Anion Gap 14.0 BUN 10 Creatinine 0.8 GFR Calculation 70 Glucose 88 Uric Acid 2.6 Calcium 7.9 L Phosphorus 3.2 Magnesium 1.7 Total Bilirubin 0.3 Direct Bilirubin < 0.2 GGT 17 AST 45 H ALT 20 Alkaline Phosphatase 40 Lactate Dehydrogenase 316 H C-Reactive Protein 2.0 H Total Protein 6.1 Albumin 3.2 Globulin 2.9 Albumin/Globulin Ratio 1.1 Triglycerides 56 Procalcitonin Urine Color Urine Appearance Urine pH Ur Specific [place] Urine Protein Urine Glucose (UA) Urine Ketones Urine Occult Blood Urine Nitrate Urine Bilirubin Urine Urobilinogen Ur Leukocyte Esterase Urine RBC Urine WBC Ur Squamous Epith Cells Urine Bacteria Urine Mucus Ur Culture Indicated? 10/25/18 10/25/18 10/25/18 21:15 21:15 21:15 WBC RBC Hgb Hct MCV MCH MCHC RDW Plt Count MPV Gran % Lymph % (Auto) [place] % (Auto) Eos % (Auto) Baso % (Auto) Gran # Lymph # (Auto) [place] # (Auto) Eos # (Auto) Baso # (Auto) Total Counted Seg Neutrophils % Band Neutrophils % Lymphocytes % Monocytes % (Manual) Platelet Estimate RBC Morphology VBG Lactic Acid 1.9 Sodium 136 Potassium 4.1 Chloride 101 Carbon Dioxide 23 Anion Gap 12.0 BUN 14 Creatinine 0.9 GFR Calculation 60 Glucose 90 Uric Acid Calcium 8.5 L Phosphorus Magnesium Total Bilirubin 0.3 Direct Bilirubin GGT AST 43 H ALT 22 Alkaline Phosphatase 47 Lactate Dehydrogenase C-Reactive Protein Total Protein 7.0 Albumin 3.7 Globulin 3.3 Albumin/Globulin Ratio 1.1 Triglycerides Procalcitonin < 0.05 Urine Color Urine Appearance Urine pH Ur Specific [place] Urine Protein Urine Glucose (UA) Urine Ketones Urine Occult Blood Urine Nitrate Urine Bilirubin Urine Urobilinogen Ur Leukocyte Esterase Urine RBC Urine WBC Ur Squamous Epith Cells Urine Bacteria Urine Mucus Ur Culture Indicated? 10/25/18 10/25/18 21:15 20:50 WBC 4.2 L RBC 3.67 L Hgb 11.4 L Hct 34.2 L MCV 93.2 MCH 30.9 MCHC 33.2 RDW 13.1 Plt Count 180 MPV 7.2 L Gran % Lymph % (Auto) [place] % (Auto) Eos % (Auto) Baso % (Auto) Gran # Lymph # (Auto) [place] # (Auto) Eos # (Auto) Baso # (Auto) Total Counted 100 Seg Neutrophils % 81 H Band Neutrophils % 6 Lymphocytes % 8 L Monocytes % (Manual) 5 Platelet Estimate Normal RBC Morphology Normal VBG Lactic Acid Sodium Potassium Chloride Carbon Dioxide Anion Gap BUN Creatinine GFR Calculation Glucose Uric Acid Calcium Phosphorus Magnesium Total Bilirubin Direct Bilirubin GGT AST ALT Alkaline Phosphatase Lactate Dehydrogenase C-Reactive Protein Total Protein Albumin Globulin Albumin/Globulin Ratio Triglycerides Procalcitonin Urine Color Yellow Urine Appearance Clear Urine pH 6.0 Ur Specific [place] 1.021 Urine Protein Neg Urine Glucose (UA) Negative Urine Ketones 20 A Urine Occult Blood 0.03 A Urine Nitrate Neg Urine Bilirubin Neg Urine Urobilinogen Neg Ur Leukocyte Esterase Neg Urine RBC 15 H Urine WBC 1 Ur Squamous Epith Cells 0 Urine Bacteria 0 Urine Mucus Few Ur Culture Indicated? No Preliminary micro results at discharge 10/25/18 20:40 Blood Culture - Preliminary Blood Medical - DS: A/P - Patient/Caregiver Discharge Instructions Activity: increase activity as tolerated Diet: Regular Diet Prescriptions: Oseltamivir Phosphate [Tamiflu] 75 mg PO BID #6 cap - Follow up Plan Follow up with: Trevon Mcduffie MD [Primary Care Provider] - Disposition: Xf SNF Prognosis: Fair Rehab Potential: Fair I certify that the patient requires SNF services: Yes Overall status at discharge: patient is progressing back to baseline Medical - DS: Qual - VTE Deep Vein Thrombosis/Pulmonary Embolism Present on Admission: No
[2018-10-27] MEDS: ACETAMINOPHEN 325 MG TABLET PO PRN ×2 (02:52→22:58)
[2018-10-27] MEDS: 0.9 % SODIUM CHLORIDE 10 ML SYRINGE IV SCH ×3 (05:58→21:42)
[2018-10-27 06:15] LABS: Basophils # (Auto) 0 K/mcL (0.0-0.3); Basophils % (Auto) 0.4 % (0.0-2.0); Eosinophils # (Auto) 0 K/mcL (0.0-0.7); Eosinophils % (Auto) 0.9 % (0.0-7.0); Granulocytes % (Auto) 56.5 % (38.0-78.0); Lymphocytes # (Auto) 0.9 K/mcL (1.5-4.8); Lymphocytes % (Auto) 31.6 % (15.5-49.0); Mean Cell Volume 95.1 fL (80.0-100.0); Mean Corpuscular HGB Conc 33.3 g/dL (31.0-36.0); Monocytes # (Auto) 0.3 K/mcL (0.1-0.9); Monocytes % (Auto) 10.6 % (1.0-12.0); Platelet Count 136 K/mcL (140-440); RBC 3.37 M/mcL (4.00-5.20); Red Cell Distribution Width 14.1 % (11.5-14.5)
[2018-10-27 06:20] LABS: Blood Urea Nitrogen 16 mg/dl (8-23)
--- NOTE | 2018-10-27 07:25 | Internal Med Progress Note ---
Medical - PN: Subj Patient information: Note initiated : 10/27/18 at 7:23 am Service Date, if different from initiated Date: [] Patient: Monik Byrd a 78 y/o F admitted on 10/26/18 for confusion. Chief Complaint: [] Interval history: Ms. Byrd is a 78 year old F With weakness and confusion for the past 24 hours as well as cough. EMS was called by neighbors as the neighbors had her over for dinner the previous night where she had fallen. Today they noticed that she was confused, she lives alone. She was disoriented when she arrived in the ED. She has a history of depression. She had a chest x-ray, knee x-ray, CT brain; all unremarkable per discussion with ED physician. She was found to be febrile and found to be positive for influenza A. In discussing with her why she is here she is not sure why. She could not give me much of a history. She is coughing throughout my interview, and I asked if that is new and she says it depends. Review of systems: Unable to obtain given her confusion 10/26 She reports poor sleep last night. Reports some crampy abdominal pain lower quadrants. No she is in the hospital. Appears agitated at times. Answers questions appropriately although slowly. 10/27 Mentation improved significant yesterday afternoon. Then became more confused and agitated overnight. however, clearing up again mid morning. Sounds like there might be some baseline memory issues after discussion with staff and case management. No coughing this morning. She is ambulating better. No new complaints. Review of Systems: denies headache/fever/chills/nausea/vomiting/chest or abdominal pain/ Otherwise see above. - Constitutional Vitals: Vital Signs Temp Pulse Resp BP Pulse Ox 98.2 F 77 18 153/64 98 10/27/18 03:37 10/27/18 03:37 10/27/18 03:37 10/27/18 03:37 10/27/18 03:37 Period Temp Pulse Resp BP Sys/Khanna Pulse Ox Last 24 Hr 96 F-100.8 F 71-98 16-20 110-153/64-76 93-98 Intake and Output 10/26/18 10/27/18 10/27/18 21:59 05:59 13:59 Intake Total 240 240 Output Total 1200 750 Balance -960 -510 Weight 74.616 kg Intake & Output: Intake & Output 10/26/18 10/27/18 10/27/18 21:59 05:59 13:59 Intake Total 240 240 Output Total 1200 750 Balance -960 -510 Weight 74.616 kg Intake: Oral 240 240 Output: Urine Catheter Amount 1200 750 Other: Meal Dinner Percent of Meal Consumed 100% Feeding Ability Assist with Tray Set Up Urine Appearance Clear Clear Urine Color Pale Light Kellie Stool Size Smear Stool Color Brown Stool Consistency Roxy # Bowel Movements 1 Exam: General: Alert, Awake, Eyes/N/T: EOMI, Head/Neck: neck supple with full ROM no rigidity, CV: RRRr, No murmurs, Pulm: Clear b/l, no wheezing/rhonchi/rales Abd: soft, nontender, +BS x4 Ext: no clubbing/cyanosis/edema Neuro: Alert and oriented x4, no focal deficits, follows commands and answers questions appropriately skin: warm/dry Medical - PN: Obj Da - Labs CBC & Chem 7: 10/27/18 04:16 10/27/18 04:16 Labs: Abnormal Lab Results 10/27/18 10/27/18 10/26/18 04:16 04:16 04:00 WBC 2.9 L RBC 3.37 L Hgb 10.7 L Hct 32.0 L Plt Count 136 L MPV Lymph % (Auto) [place] % (Auto) Gran # 1.6 L Lymph # (Auto) 0.9 L Seg Neutrophils % Lymphocytes % Carbon Dioxide Calcium 7.8 L POC WB Ioniz Calcium AST Lactate Dehydrogenase C-Reactive Protein 2.0 H Urine Ketones Urine Occult Blood Urine RBC 10/26/18 10/26/18 10/25/18 04:00 04:00 21:15 WBC 3.4 L RBC 3.48 L Hgb 11.0 L Hct 33.3 L Plt Count 135 L MPV Lymph % (Auto) 13.8 L [place] % (Auto) 13.2 H Gran # Lymph # (Auto) 0.5 L Seg Neutrophils % Lymphocytes % Carbon Dioxide 19 L Calcium 7.9 L 8.5 L POC WB Ioniz Calcium AST 45 H 43 H Lactate Dehydrogenase 316 H C-Reactive Protein Urine Ketones Urine Occult Blood Urine RBC 10/25/18 10/25/18 10/25/18 21:15 21:15 20:50 WBC 4.2 L RBC 3.67 L Hgb 11.4 L Hct 34.2 L Plt Count MPV 7.2 L Lymph % (Auto) [place] % (Auto) Gran # Lymph # (Auto) Seg Neutrophils % 81 H Lymphocytes % 8 L Carbon Dioxide Calcium POC WB Ioniz Calcium 1.06 L AST Lactate Dehydrogenase C-Reactive Protein Urine Ketones 20 A Urine Occult Blood 0.03 A Urine RBC 15 H Meds: Medications Acetaminophen (Tylenol) 650 mg PO Q6HP PRN PRN Reason: PAIN/FEVER > 101 Last Admin: 10/27/18 02:52 Dose: 650 mg Documented by: Hydrocodone Bitart/Acetaminophen ([place] 5/325mg) 1 tab PO Q4HP PRN PRN Reason: PAIN LEVEL 3-6 Last Admin: 10/26/18 01:15 Dose: 1 tab Documented by: Albuterol/Ipratropium (Duoneb) 3 ml NEB Q4HP PRN PRN Reason: Shortness Of Breath Docusate Sodium (Colace) 100 mg PO BID [facility] [place] Last Admin: 10/26/18 21:11 Dose: 100 mg Documented by: Enoxaparin Sodium (Lovenox) 40 mg SQ DAILY [facility] [place] Last Admin: 10/26/18 09:26 Dose: 40 mg Documented by: Potassium Chloride 40 meq/ (Dextrose) 520 mls @ 130 mls/hr IV ONCE PRN PRN Reason: Potassium < 3 Magnesium Sulfate (Magnesium Sulfate) 2 gm in 50 mls @ 50 mls/hr IV ONCE PRN PRN Reason: Magnesium </= 1.6 Lactulose (Cephulac) 10 gm PO DAILYP PRN PRN Reason: Constipation Olanzapine (Zyprexa) 5 mg PO TIDP PRN PRN Reason: Agitation Ondansetron HCl (Zofran) 4 mg IV Q4HP PRN PRN Reason: Nausea And Vomiting Oseltamivir Phosphate (Tamiflu) 75 mg PO BID [facility] [place] Last Admin: 10/26/18 21:10 Dose: 75 mg Documented by: Polyethylene Glycol (Miralax) 17 gm PO DAILYP PRN PRN Reason: Constipation Potassium Chloride (Kdur) 40 meq PO ONCE PRN PRN Reason: Potssium is 3-3.5 Potassium Chloride (Kdur) 40 meq PO ONCE PRN PRN Reason: Potassium < 3 Prochlorperazine (Compazine) 10 mg IV Q6HP PRN PRN Reason: Nausea And Vomiting Senna (Senokot) 2 tab PO HSP PRN PRN Reason: Constipation Sodium Chloride (Saline Flush) 10 ml IV Q8 LINO Last Admin: 10/27/18 05:58 Dose: 10 ml Documented by: Medical - PN: A/P - Time Spent With Patient Total time spent is greater than 50% in coordination of care (as documented) at patient's floor/unit and/or counseling patient: - Narrative A/P Narrative: A: *Influenza PNA with Fevers/Cough/Confusion: -Afebrile since morning of 10/26 -CT brain no acute, chronic small vessel ischemic changes -CXR unremarkable, not requiring supplemental oxygen *Encephalopathy: Secondary to above - significantly improved, but appears to have some sundowning -Likely underlying component of dementia *Depression/anxiety: *Generalized weakness/deconditioning: * P: -Tamiflu -s/p IVF's -PRN Zyprexa -trying to clarify home meds -pt/ot -ppx: Lovenox Medical - PN: Qual - VTE Deep Vein Thrombosis/Pulmonary Embolism Present on Admission: No
[2018-10-27] MEDS: OSELTAMIVIR PHOSPHATE 75 MG CAPSULE PO SCH (09:07)
[2018-10-27] MEDS: ENOXAPARIN 40 MG/0.4 ML SYRINGE SQ SCH (09:10)
[2018-10-27] MEDS: DOCUSATE SODIUM 100 MG CAPSULE PO SCH ×2 (09:10→21:31)
[2018-10-27] MEDS: OSELTAMIVIR PHOSPHATE 6 MG/ML BOTTLE PO SCH (21:53)
[2018-10-28] MEDS: HYDROcodone/APAP 5/325MG TABLET PO PRN (05:44)
[2018-10-28] MEDS: 0.9 % SODIUM CHLORIDE 10 ML SYRINGE IV SCH ×2 (06:06→14:48)
--- NOTE | 2018-10-28 07:08 | Internal Med Progress Note ---
Medical - PN: Subj Patient information: Note initiated : 10/28/18 at 7:05 am Service Date, if different from initiated Date: [] Patient: Monik Byrd 78 y/o F admitted on 10/26/18 for confusion. Chief Complaint: [] Interval history: Ms. Byrd is a 78 year old F With weakness and confusion for the past 24 hours as well as cough. EMS was called by neighbors as the neighbors had her over for dinner the previous night where she had fallen. Today they noticed that she was confused, she lives alone. She was disoriented when she arrived in the ED. She has a history of depression. She had a chest x-ray, knee x-ray, CT brain; all unremarkable per discussion with ED physician. She was found to be febrile and found to be positive for influenza A. In discussing with her why she is here she is not sure why. She could not give me much of a history. She is coughing throughout my interview, and I asked if that is new and she says it depends. Review of systems: Unable to obtain given her confusion 10/26 She reports poor sleep last night. Reports some crampy abdominal pain lower quadrants. No she is in the hospital. Appears agitated at times. Answers questions appropriately although slowly. 10/27 Mentation improved significant yesterday afternoon. Then became more confused and agitated overnight. however, clearing up again mid morning. Sounds like there might be some baseline memory issues after discussion with staff and case management. No coughing this morning. She is ambulating better. No new complaints. 10/28 Some agitation confusion overnight again. Always worse at night typically clears during the day. No other overnight events. Patient denies any complaints. Review of Systems: denies headache/fever/chills/nausea/vomiting/chest or abdominal pain/ Otherwise see above. - Constitutional Vitals: Vital Signs Temp Pulse Resp BP Pulse Ox 98.9 F 96 H 16 149/71 96 10/28/18 04:00 10/28/18 04:00 10/28/18 04:00 10/28/18 04:00 10/28/18 04:00 Period Temp Pulse Resp BP Sys/Khanna Pulse Ox Last 24 Hr 98.6 F-99.5 F 77-98 16-18 130-159/68-81 95-97 Intake and Output 10/27/18 10/28/18 10/28/18 21:59 05:59 13:59 Intake Total 560 360 Output Total 1100 950 Balance -540 -590 Weight 74.389 kg Intake & Output: Intake & Output 10/27/18 10/28/18 10/28/18 21:59 05:59 13:59 Intake Total 560 360 Output Total 1100 950 Balance -540 -590 Weight 74.389 kg Intake: Oral 560 360 Output: Urine Catheter Amount 1100 950 Other: Meal Dinner Percent of Meal Consumed 100% Feeding Ability Assist with Tray Set Up Urine Appearance Cloudy Mucous Threads Small Blood Clots Urine Color Dark Yellow Light Kellie Blood Tinged Blood Tinged Stool Size Moderate Stool Color Brown Stool Consistency Normal for Patient Soft Formed Exam: General: Alert, Awake, NAD Eyes/N/T: EOMI, Head/Neck: neck supple CV: RRRr, No murmurs, Pulm: Clear b/l, no wheezing/rhonchi/rales Abd: soft, nontender, +BS x4 Ext: no clubbing/cyanosis/edema Neuro: Alert, no focal deficits, follows commands and answers questions appropriately skin: warm/dry Medical - PN: Obj Da - Labs CBC & Chem 7: 10/27/18 04:16 10/27/18 04:16 Labs: Abnormal Lab Results 10/27/18 10/27/18 10/26/18 04:16 04:16 04:00 WBC 2.9 L RBC 3.37 L Hgb 10.7 L Hct 32.0 L Plt Count 136 L MPV Lymph % (Auto) Orange % (Auto) Gran # 1.6 L Lymph # (Auto) 0.9 L Seg Neutrophils % Lymphocytes % Carbon Dioxide Calcium 7.8 L POC WB Ioniz Calcium AST Lactate Dehydrogenase C-Reactive Protein 2.0 H Urine Ketones Urine Occult Blood Urine RBC 10/26/18 10/26/18 10/25/18 04:00 04:00 21:15 WBC 3.4 L RBC 3.48 L Hgb 11.0 L Hct 33.3 L Plt Count 135 L MPV Lymph % (Auto) 13.8 L Orange % (Auto) 13.2 H Gran # Lymph # (Auto) 0.5 L Seg Neutrophils % Lymphocytes % Carbon Dioxide 19 L Calcium 7.9 L 8.5 L POC WB Ioniz Calcium AST 45 H 43 H Lactate Dehydrogenase 316 H C-Reactive Protein Urine Ketones Urine Occult Blood Urine RBC 10/25/18 10/25/18 10/25/18 21:15 21:15 20:50 WBC 4.2 L RBC 3.67 L Hgb 11.4 L Hct 34.2 L Plt Count MPV 7.2 L Lymph % (Auto) Orange % (Auto) Gran # Lymph # (Auto) Seg Neutrophils % 81 H Lymphocytes % 8 L Carbon Dioxide Calcium POC WB Ioniz Calcium 1.06 L AST Lactate Dehydrogenase C-Reactive Protein Urine Ketones 20 A Urine Occult Blood 0.03 A Urine RBC 15 H Meds: Medications Acetaminophen (Tylenol) 650 mg PO Q6HP PRN PRN Reason: PAIN/FEVER > 101 Last Admin: 10/27/18 22:58 Dose: 650 mg Documented by: Hydrocodone Bitart/Acetaminophen ([place] 5/325mg) 1 tab PO Q4HP PRN PRN Reason: PAIN LEVEL 3-6 Last Admin: 10/28/18 05:44 Dose: 1 tab Documented by: Albuterol/Ipratropium (Duoneb) 3 ml NEB Q4HP PRN PRN Reason: Shortness Of Breath Docusate Sodium (Colace) 100 mg PO BID [facility] Last Admin: 10/27/18 21:31 Dose: Not Given Documented by: Enoxaparin Sodium (Lovenox) 40 mg SQ DAILY [facility] Last Admin: 10/27/18 09:10 Dose: 40 mg Documented by: Potassium Chloride 40 meq/ (Dextrose) 520 mls @ 130 mls/hr IV ONCE PRN PRN Reason: Potassium < 3 Magnesium Sulfate (Magnesium Sulfate) 2 gm in 50 mls @ 50 mls/hr IV ONCE PRN PRN Reason: Magnesium </= 1.6 Lactulose (Cephulac) 10 gm PO DAILYP PRN PRN Reason: Constipation Olanzapine (Zyprexa) 5 mg PO TIDP PRN PRN Reason: Agitation Last Admin: 10/28/18 05:44 Dose: 5 mg Documented by: Ondansetron HCl (Zofran) 4 mg IV Q4HP PRN PRN Reason: Nausea And Vomiting Oseltamivir Phosphate (Tamiflu) 30 mg PO BID [facility] Last Admin: 10/27/18 21:53 Dose: 30 mg Documented by: Polyethylene Glycol (Miralax) 17 gm PO DAILYP PRN PRN Reason: Constipation Potassium Chloride (Kdur) 40 meq PO ONCE PRN PRN Reason: Potssium is 3-3.5 Potassium Chloride (Kdur) 40 meq PO ONCE PRN PRN Reason: Potassium < 3 Prochlorperazine (Compazine) 10 mg IV Q6HP PRN PRN Reason: Nausea And Vomiting Senna (Senokot) 2 tab PO HSP PRN PRN Reason: Constipation Sodium Chloride (Saline Flush) 10 ml IV Q8 [facility] Last Admin: 10/28/18 06:06 Dose: 10 ml Documented by: Medical - PN: A/P - Time Spent With Patient Total time spent is greater than 50% in coordination of care (as documented) at patient's floor/unit and/or counseling patient: - Narrative A/P Narrative: A: *Influenza PNA with Fevers/Cough/Confusion: -Afebrile since morning of 10/26 -CT brain no acute, chronic small vessel ischemic changes -CXR unremarkable, not requiring supplemental oxygen *Encephalopathy: Secondary to above - significantly improved, but appears to have some sundowning -Likely underlying component of dementia -CT brain no acute, chronic small vessel ischemic changes *very Likely underlying Dementia: *Depression/anxiety: *Generalized weakness/deconditioning: * P: -Tamiflu -PRN Zyprexa -CM for placement -pt/ot -ppx: Lovenox Medical - PN: Qual - VTE Deep Vein Thrombosis/Pulmonary Embolism Present on Admission: No
[2018-10-28] MEDS ORDERED: MAGNESIUM OXIDE 400 MG TABLET PO SCH (09:00)
[2018-10-28] MEDS ORDERED: SERTRALINE 50 MG TABLET PO SCH (09:00)
[2018-10-28] MEDS: DOCUSATE SODIUM 100 MG CAPSULE PO SCH ×2 (10:06→20:26)
[2018-10-28 10:07] LABS: Basophils # (Auto) 0 K/mcL (0.0-0.3); Basophils % (Auto) 0.4 % (0.0-2.0); Eosinophils # (Auto) 0.1 K/mcL (0.0-0.7); Eosinophils % (Auto) 2.1 % (0.0-7.0); Granulocytes % (Auto) 45.7 % (38.0-78.0); Lymphocytes # (Auto) 1.1 K/mcL (1.5-4.8); Mean Cell Volume 94.1 fL (80.0-100.0); Mean Corpuscular HGB Conc 33.4 g/dL (31.0-36.0); Monocytes # (Auto) 0.3 K/mcL (0.1-0.9); Monocytes % (Auto) 10.8 % (1.0-12.0); Platelet Count 159 K/mcL (140-440); RBC 3.83 M/mcL (4.00-5.20); Red Cell Distribution Width 14.1 % (11.5-14.5)
[2018-10-28] MEDS: ENOXAPARIN 40 MG/0.4 ML SYRINGE SQ SCH (10:07)
[2018-10-28 10:25] LABS: ALT/SGPT 20 U/l (0-40); Albumin 3.5 gm/dL (3.2-5.2); Albumin/Globulin Ratio 1.1 (1.0-2.3); Alkaline Phosphatase 42 U/L (39-117); Bilirubin,Direct < 0.2 mg/dL (0.0-0.3); Blood Urea Nitrogen 13 mg/dl (8-23); Gamma Glutamyl Transpeptidase 22 U/L (5-36); Uric Acid 2.9 mg/dL (2.5-8.0)
[2018-10-28] MEDS: OSELTAMIVIR PHOSPHATE 6 MG/ML BOTTLE PO SCH ×3 (11:32→20:27)
[2018-10-28] MEDS ORDERED: LACTULOSE 20 GM/30 ML ORAL.SOL PO PRN (16:05)
[2018-10-28] MEDS ORDERED: PROCHLORPERAZINE 10 MG/2 ML VIAL IV PRN (16:05)
[2018-10-28] MEDS ORDERED: SENNOSIDES 1 TABLET PO PRN (16:05)
[2018-10-28] MEDS ORDERED: POLYETHYLENE GLYCOL 3350 17 GM PACKET PO PRN (16:05)
[2018-10-28] MEDS ORDERED: HYDROcodone/APAP 5/325MG TABLET PO PRN (16:05)
[2018-10-28] MEDS ORDERED: POTASSIUM CHLORIDE 20 MEQ TABLET PO PRN ×2 (16:05)
[2018-10-28] MEDS ORDERED: MAGNESIUM SULFATE 2 GM/50 ML BAG IV PRN (16:05)
[2018-10-28] MEDS ORDERED: POTASSIUM CHLORIDE 40 MEQ in DEXTROSE 5% IN WATER 500 ML IV PRN (16:05)
[2018-10-28] MEDS ORDERED: IPRATROPIUM/ALBUTEROL 3 ML AMPUL.NEB NEB PRN (16:05)
[2018-10-28] MEDS ORDERED: OLANZapine 5 MG TABLET PO PRN (16:05)
[2018-10-28] MEDS ORDERED: ACETAMINOPHEN 325 MG TABLET PO PRN (16:05)
[2018-10-28] MEDS ORDERED: ONDANSETRON 4 MG/2 ML VIAL IV PRN (16:05)
[2018-10-28] MEDS: SERTRALINE 50 MG TABLET PO SCH (20:28)
[2018-10-29] MEDS: 0.9 % SODIUM CHLORIDE 10 ML SYRINGE IV SCH ×3 (02:27→12:04)
--- NOTE | 2018-10-29 07:09 | Internal Med Progress Note ---
Medical - PN: Subj Patient information: Note initiated : 10/29/18 at 7:07 am Service Date, if different from initiated Date: [] Patient: Monik Byrd 78 y/o F admitted on 10/26/18 for confusion. Chief Complaint: [] Interval history: Ms. Byrd is a 78 year old F With weakness and confusion for the past 24 hours as well as cough. EMS was called by neighbors as the neighbors had her over for dinner the previous night where she had fallen. Today they noticed that she was confused, she lives alone. She was disoriented when she arrived in the ED. She has a history of depression. She had a chest x-ray, knee x-ray, CT brain; all unremarkable per discussion with ED physician. She was found to be febrile and found to be positive for influenza A. In discussing with her why she is here she is not sure why. She could not give me much of a history. She is coughing throughout my interview, and I asked if that is new and she says it depends. Review of systems: Unable to obtain given her confusion 10/26 She reports poor sleep last night. Reports some crampy abdominal pain lower quadrants. No she is in the hospital. Appears agitated at times. Answers questions appropriately although slowly. 10/27 Mentation improved significant yesterday afternoon. Then became more confused and agitated overnight. however, clearing up again mid morning. Sounds like there might be some baseline memory issues after discussion with staff and case management. No coughing this morning. She is ambulating better. No new complaints. 10/28 Some agitation confusion overnight again. Always worse at night typically clears during the day. No other overnight events. Patient denies any complaints. Review of Systems: denies headache/fever/chills/nausea/vomiting/chest or abdominal pain/ Otherwise see above. - Constitutional Vitals: Vital Signs Temp Pulse Resp BP Pulse Ox 98.4 F 75 24 H 134/80 92 10/29/18 05:07 10/29/18 05:07 10/29/18 05:07 10/29/18 05:07 10/29/18 05:07 Period Temp Pulse Resp BP Sys/Khanna Pulse Ox Last 24 Hr 89.9 F-98.4 F 75-100 15-24 128-137/77-83 92-96 Intake and Output 10/28/18 10/29/18 10/29/18 21:59 05:59 13:59 Intake Total 240 360 Balance 240 360 Weight 74.389 kg Intake & Output: Intake & Output 10/28/18 10/29/18 10/29/18 21:59 05:59 13:59 Intake Total 240 360 Balance 240 360 Weight 74.389 kg Intake: Oral 240 360 Exam: General: Alert, Awake, NAD Eyes/N/T: EOMI, Head/Neck: neck supple CV: RRRr, No murmurs, Pulm: Clear b/l, no wheezing/rhonchi/rales Abd: soft, nontender, +BS x4 Ext: no clubbing/cyanosis/edema Neuro: Alert, no focal deficits, follows commands and answers questions appropriately skin: warm/dry Medical - PN: Obj Da - Labs CBC & Chem 7: 10/28/18 09:27 10/28/18 09:27 Labs: Abnormal Lab Results 10/28/18 10/28/18 10/27/18 09:27 09:27 04:16 WBC 2.8 L RBC 3.83 L Hgb Hct Plt Count MPV 7.3 L Gran # 1.3 L Lymph # (Auto) 1.1 L Glucose 107 H Calcium 7.8 L AST 56 H Lactate Dehydrogenase 321 H C-Reactive Protein 10/27/18 10/26/18 04:16 04:00 WBC 2.9 L RBC 3.37 L Hgb 10.7 L Hct 32.0 L Plt Count 136 L MPV Gran # 1.6 L Lymph # (Auto) 0.9 L Glucose Calcium AST Lactate Dehydrogenase C-Reactive Protein 2.0 H Meds: Medications Acetaminophen (Tylenol) 650 mg PO Q6HP PRN PRN Reason: PAIN/FEVER > 101 Last Admin: 10/28/18 23:18 Dose: 650 mg Documented by: Hydrocodone Bitart/Acetaminophen ([place] 5/325mg) 1 tab PO Q4HP PRN PRN Reason: PAIN LEVEL 3-6 Last Admin: 10/28/18 20:27 Dose: 1 tab Documented by: Albuterol/Ipratropium (Duoneb) 3 ml NEB Q4HP PRN PRN Reason: Shortness Of Breath Docusate Sodium (Colace) 100 mg PO BID [facility] Last Admin: 10/28/18 20:26 Dose: Not Given Documented by: Enoxaparin Sodium (Lovenox) 40 mg SQ DAILY [facility] Potassium Chloride 40 meq/ (Dextrose) 520 mls @ 130 mls/hr IV ONCE PRN PRN Reason: Potassium < 3 Magnesium Sulfate (Magnesium Sulfate) 2 gm in 50 mls @ 50 mls/hr IV ONCE PRN PRN Reason: Magnesium </= 1.6 Lactulose (Cephulac) 10 gm PO DAILYP PRN PRN Reason: Constipation Magnesium Oxide (Magnesium Oxide) 400 mg PO DAILY [facility] Olanzapine (Zyprexa) 5 mg PO TIDP PRN PRN Reason: Agitation Last Admin: 10/28/18 20:26 Dose: 5 mg Documented by: Ondansetron HCl (Zofran) 4 mg IV Q4HP PRN PRN Reason: Nausea And Vomiting Oseltamivir Phosphate (Tamiflu) 30 mg PO BID [facility] Last Admin: 10/28/18 20:27 Dose: 30 mg Documented by: Polyethylene Glycol (Miralax) 17 gm PO DAILYP PRN PRN Reason: Constipation Potassium Chloride (Kdur) 40 meq PO ONCE PRN PRN Reason: Potssium is 3-3.5 Potassium Chloride (Kdur) 40 meq PO ONCE PRN PRN Reason: Potassium < 3 Prochlorperazine (Compazine) 10 mg IV Q6HP PRN PRN Reason: Nausea And Vomiting Senna (Senokot) 2 tab PO HSP PRN PRN Reason: Constipation Sertraline HCl (Zoloft) 25 mg PO BID [facility] Last Admin: 10/28/18 20:28 Dose: Not Given Documented by: Sodium Chloride (Saline Flush) 10 ml IV Q8 [facility] Last Admin: 10/29/18 06:52 Dose: Not Given Documented by: Medical - PN: A/P - Time Spent With Patient Total time spent is greater than 50% in coordination of care (as documented) at patient's floor/unit and/or counseling patient: - Narrative A/P Narrative: A: *Influenza PNA with Fevers/Cough/Confusion: -Afebrile since morning of 10/26 -CT brain no acute, chronic small vessel ischemic changes -CXR unremarkable, not requiring supplemental oxygen *Encephalopathy: Secondary to above - significantly improved, but appears to have some sundowning -Likely underlying component of dementia -CT brain no acute, chronic small vessel ischemic changes *underlying Dementia: -sundowning *Depression/anxiety: *Generalized weakness/deconditioning: * P: -Tamiflu -PRN Zyprexa -CM for placement -pt/ot -ppx: Lovenox Medical - PN: Qual - VTE Deep Vein Thrombosis/Pulmonary Embolism Present on Admission: No
[2018-10-29] MEDS: OSELTAMIVIR PHOSPHATE 6 MG/ML BOTTLE PO SCH (08:12)
[2018-10-29] MEDS: SERTRALINE 50 MG TABLET PO SCH (08:13)
[2018-10-29] MEDS: DOCUSATE SODIUM 100 MG CAPSULE PO SCH (08:15)
[2018-10-29] MEDS ORDERED: ENOXAPARIN 40 MG/0.4 ML SYRINGE SQ SCH (09:00)
[2018-10-29] MEDS ORDERED: MAGNESIUM OXIDE 400 MG TABLET PO SCH ×2 (09:00→21:00)
== END 2018-10-29 14:25 | DRG 194 ==
LOC: ED 19:59 → ICU 10-26 00:34 → MEDSUR 10-28 04:50
PROVIDERS: ADMIT Internal Medicine; ATTEND Internal Medicine